=== PATIENT | male | born 2000 | race African-American/Black ===

== ENCOUNTER 2021-01-20 16:19 | Emergency (ER) | payer OTHER ==
[~2021-01-20] VITALS: Ht 182.9 cm; Wt 122.7 kg
[2021-01-20 16:22] VITALS: BP 117/70
[2021-01-20] MEDS ORDERED: LIDOCAINE/PRILOCAINE 2.5% 30 GM CREAM TP ONE (17:00)
[2021-01-20] MEDS ORDERED: BACITRACIN 0.9 GM PACKET OINTMENT TP ONE (17:45)
[2021-01-20] MEDS ORDERED: LIDOCAINE 1% 10 ML VIAL PERC ONE (17:45)
== END 2021-01-20 18:23 | disposition home or self-care (01) ==
LOC: EMS 16:23
DX: T16.2XXA Foreign body in left ear, initial encounter (principal); W45.8XXA Other foreign body or object entering through skin, initial encounter; Y93.89 Activity, other specified; Y92.89 Other specified places as the place of occurrence of the external cause; Y99.8 Other external cause status
CPT/HCPCS: 99284; Z7502; Z7610